=== PATIENT | female | born 1995 | race Two or more races ===

== ENCOUNTER 2024-10-02 18:39 | Emergency (ER) | payer OTHER ==
[~2024-10-02] VITALS: Ht 152.4 cm; Wt 66.0 kg
[2024-10-02 19:49] LABS: Urine Bacteria FEW /hpf (None Seen); Urine Blood 2+ /uL (Negative); Urine Clarity Clear (Clear); Urine Color Light-Yellow (Yellow); Urine Mucus FEW (None Seen); Urine Protein, UAD Negative (Negative); Urine Specific Gravity 1.016 (1.001-1.035); Urine Urobilinogen Normal (Negative); Urine WBC 1 /hpf (0 - 5); Urine pH 5.5 (5.0-9.0)
[2024-10-02 20:10] LABS: Basophils # (auto) 0 10 ^3/uL (0-0.2); Basophils % (auto) 0.3 % (0.0-2.0); Eosinophils # (auto) 0 10 ^3/uL (0-0.8); Mean Corpuscular Hemoglobin 26.6 pg (28.0-32.0); Nucleated Red Blood Cells % 0.1 %; Red Cell Distribution Width 15.9 % (11.8-14.3)
[2024-10-02 20:12] LABS: Hematocrit 37.3 % (36.0-46.0); Hemoglobin 12.2 g/dL (12.2-16.2); Lymphocytes # (auto) 1.4 10 ^3/uL (0.4-5.4); Mean Corpuscular Hgb Conc. 32.7 g/dL (32.0-36.0); Mean Corpuscular Volume 81.3 fL (80.0-100.0); Monocytes # (auto) 0.5 10 ^3/uL (0-1.3); Monocytes % (auto) 8.3 % (0.0-12.0); Neutrophils # (auto) 3.7 10 ^3/uL (1.6-8.6); Neutrophils % (auto) 66.4 % (37.0-80.0); Platelet Count (auto) 223 10^3/uL (140-450); Red Blood Cells 4.59 10^6/uL (4.0-5.20); White Blood Cell 5.6 10^3/uL (4.4-10.8)
[2024-10-02 20:18] LABS: Chloride 105 mmol/L (98-107); Potassium 3.8 mmol/L (3.5-5.1); Sodium 135 mmol/L (136-145)
[2024-10-02 20:19] LABS: Anion Gap 8 (5-15); Calcium 9.6 mg/dL (8.7-10.4); Carbon Dioxide 22 mmol/L (20-31)
[2024-10-02 20:24] LABS: Glucose 91 mg/dL (74-106)
[2024-10-02] MEDS: SODIUM CHLORIDE 0.9% 1,000 ML IV ONE (21:05)
[2024-10-02] MEDS: ACETAMINOPHEN 500 MG TAB PO ONE (21:06)
[2024-10-02] MEDS: ONDANSETRON HCL 4 MG/2 ML VIAL IV ONE (21:07)
[2024-10-02] MEDS: KETOROLAC TROMETH 30 MG/ML 1ML VIAL IV ONE (21:07)
[2024-10-02 21:16] LABS: BUN/Creatinine Ratio 5.5 (10.0-20.0); Blood Urea Nitrogen < 5 mg/dL (9-23)
[2024-10-02 22:03] LABS: COVID19 ANTIGEN SOFIA FIA NEGATIVE (NEGATIVE); Rapid Influenza A Negative (Negative); Rapid Influenza B Negative (Negative)
[2024-10-02 23:00] VITALS: BP 118/68; PULSE 95; RESP 16; TEMP 98.4; O2SAT 98
== END 2024-10-02 23:03 | disposition home or self-care (01) ==
LOC: ER 18:39
DX: B34.9 Viral infection, unspecified (principal); R50.9 Fever, unspecified; M79.10 Myalgia, unspecified site; Z98.890 Other specified postprocedural states; Z20.822 Contact with and (suspected) exposure to COVID-19
CPT/HCPCS: 36415; 71046; 80048; 81001; 81025; 85025; 87426; 87804; 96361; 96374; 96375; 99284; J1885; J2405; J7030